=== PATIENT | female | born 1980 | race Hispanic/Latino ===

== ENCOUNTER 2017-09-21 23:07 | Emergency (ER) | payer OTHER ==
[~2017-09-21] VITALS: Ht 177.8 cm; Wt 90.9 kg
[2017-09-22 00:04] LABS: HEMATOCRIT 35.8 % (36.0-46.0); HEMOGLOBIN 12.3 G/DL (11.9-15.5); MCH 30.9 PG (29.0-34.0); MCHC 34.4 G/DL (30.0-36.0); MCV 89.9 FL (83-99); PLATELET COUNT 267 K/uL (156-360); RBC DIS.WIDTH-SD 39.8 % (39-53); RED BLOOD COUNT 3.98 M/uL (3.80-5.20); WHITE BLOOD COUNT 10.9 K/uL (4.1-10.2)
[2017-09-22 00:10] LABS: CHLORIDE 105 mEq/L (99-109); POTASSIUM 3.6 mEq/L (3.7-5.4); SODIUM 141 mEq/L (136-147)
[2017-09-22 00:12] LABS: GLUCOSE 90 mg/dL (70-99)
[2017-09-22 00:15] LABS: SERUM ETHYL ALCOHOL < 10 mg/dL
[2017-09-22 00:16] LABS: CREATININE 0.7 mg/dL (0.6-1.3)
[2017-09-22 00:17] LABS: UREA NITROGEN (BUN) 13 mg/dL (9-23)
[2017-09-22 00:28] LABS: GFR ESTIMATE (CALCULATED) > 59 mL/min/
[2017-09-22 00:40] LABS: ACETAMINOPHEN (TYLENOL) < 10 mcg/mL (10-30); SALICYLATE < 5.0 MG/DL (15-30)
[2017-09-22 00:46] LABS: QUANTITATIVE HCG < 4.0 MIU/ML
[2017-09-22 04:03] VITALS: BP 123/69
== END 2017-09-22 04:04 | disposition left against medical advice (07) ==
LOC: EME 23:07
PROVIDERS: Emergency Medicine
DX: T50.991A Poisoning by other drugs, medicaments and biological substances, accidental (unintentional), initial encounter (principal)
CPT/HCPCS: 80048; 84702; 85027; G0480; J2310